=== PATIENT | male | born 1970 | race African-American/Black ===

== ENCOUNTER 2018-08-14 09:08 | Emergency (ER) | payer OTHER ==
[2018-08-14] MEDS ORDERED: LIDOCAINE HCL 1% 20 ML VIAL ONE (09:29)
[2018-08-14] MEDS ORDERED: TETANUS/DIPHTHERIA TOXOID [ADULT] 0.5 ML VIAL IM ONE (09:33)
[2018-08-14] MEDS ORDERED: CEFAZOLIN SODIUM 1 GM VIAL ONE (10:12)
[2018-08-14] MEDS ORDERED: NEOMY SULF/BACITRA/POLYMYXIN B 1 EACH PACKET TP ONE (11:30)
== END 2018-08-14 12:01 | disposition home or self-care (01) ==
LOC: EDH 09:08
DX: S61.313A Laceration without foreign body of left middle finger with damage to nail, initial encounter (principal); I10 Essential (primary) hypertension; W27.0XXA Contact with workbench tool, initial encounter; Y93.89 Activity, other specified; Y92.69 Other specified industrial and construction area as the place of occurrence of the external cause; Y99.8 Other external cause status
CPT/HCPCS: 12042; 73130; 90471; 90714; 96372; 99284; J0690